=== PATIENT | male | born 1955 | race Caucasian/White ===

== ENCOUNTER → 2019-03-13 | Outpatient (CLI) | payer OTHER | END | disposition home or self-care (01) | LOC: CPPFTMAIN 11:04 | PROVIDERS: ATTEND Internal Medicine Critical Care Medicine | DX: J43.9 Emphysema, unspecified (principal) | CPT/HCPCS: 94060; 94726; 94729 ==

== ENCOUNTER 2019-06-01 20:37 | Inpatient (IN) | payer OTHER ==
[2019-06-01] MEDS ORDERED: IPRATROPIUM-ALBUTEROL 3 ML NEB INHALATION STA (21:39)
[2019-06-01] MEDS ORDERED: MORPHINE SULFATE 4 MG/ML SYRINGE IV PRN (21:39)
[2019-06-01] MEDS ORDERED: ASPIRIN 81 MG PO STA (21:39)
[2019-06-01] MEDS ORDERED: NITROGLYCERIN SL TABS 0.4 MG TAB SUBLINGUAL PRN (21:39)
[2019-06-01] MEDS ORDERED: methylPREDNISolone SOD SUCCI 125 MG/2 ML VIAL IV STA (21:39)
--- NOTE | 2019-06-01 21:39 | ED ---
Chest Pain HPI - General Chief Complaint: Chest Pain Stated Complaint: Cardiac Consult, COPD Time Seen by Provider: 06/01/19 20:50 Source: patient, EMS, RN notes reviewed, old records reviewed Mode of arrival: EMS - History of Present Illness Initial Comments: This is a 61-year-old male DF for evaluation patient Dese for evaluation of chest accepted in transfer for chest pain evaluation with cough congestion shortness of breath as well as persistent chest pain here in the ER patient was transfer for cardiology and pulmonology evaluation. Patient still presented for chest pain and shortness with mild cough here in the ER but no distress. No other complaints MD Complaint: chest pain, other (SOB) -: days(s) Onset: during rest, during exertion Pain Location: left chest Pain Radiation: LUE Severity: moderate Severity scale (1-10): 5 Quality: tightness, heaviness Consistency: constant Improves With: nothing Context: recent illness Other Symptoms: cough, palpitations Treatments Prior to Arrival: none - Related Data Allergies Allergy/AdvReac Type Severity Reaction Status Date / Time [place] nut Allergy Rash/Hives Verified 06/01/19 21:44 bupropion [From Zyban] Allergy Rash/Hives Verified 06/01/19 21:44 Penicillins Allergy Rash/Hives Verified 06/01/19 21:44 Review of Systems ROS Statement: Those systems with pertinent positive or pertinent negative responses have been documented in the HPI. ROS Other: All systems not noted in ROS Statement are negative. EKG Findings - EKG Comments: EKG Findings:: EKG shows sinus rhythm of 94, GA 132, QRS 90, QTc 435 Past Medical History Past Medical History: COPD, GERD/Reflux History of Any Multi-Drug Resistant Organisms: None Reported Past Surgical History: Cholecystectomy, Coronary Bypass/CABG Past Psychological History: No Psychological Hx Reported Smoking Status: Former smoker Past Alcohol Use History: None Reported Past Drug Use History: None Reported General Exam General appearance: alert, in no apparent distress Head exam: Present: atraumatic, normocephalic, normal inspection Eye exam: Present: normal appearance, PERRL, EOMI. Absent: scleral icterus, conjunctival injection, periorbital swelling ENT exam: Present: normal exam, mucous membranes moist Neck exam: Present: normal inspection. Absent: tenderness, meningismus, lymphadenopathy Respiratory exam: Present: normal lung sounds bilaterally. Absent: respiratory distress, wheezes, rales, rhonchi, stridor Cardiovascular Exam: Present: regular rate, normal rhythm, normal heart sounds. Absent: systolic murmur, diastolic murmur, rubs, gallop, clicks GI/Abdominal exam: Present: soft, normal bowel sounds. Absent: distended, tenderness, guarding, rebound, rigid Extremities exam: Present: normal inspection, full ROM, normal capillary refill. Absent: tenderness, pedal edema, joint swelling, calf tenderness Back exam: Present: normal inspection Neurological exam: Present: alert, oriented X3, CN II-XII intact Psychiatric exam: Present: normal affect, normal mood Skin exam: Present: warm, dry, intact, normal color. Absent: rash Course Vital Signs 06/01/19 06/01/19 06/01/19 20:57 21:03 22:01 Temperature 98 F Pulse Rate 93 86 Pulse Rate [ 94 Filler Shaker ] Respiratory 20 Rate Blood Pressure 134/83 O2 Sat by Pulse 98 Oximetry 06/01/19 22:14 Temperature Pulse Rate 92 Pulse Rate [ Filler Shaker ] Respiratory Rate Blood Pressure O2 Sat by Pulse Oximetry - Reevaluation(s) Reevaluation #1: 06/01/19 22:35 Medical record transferring paperwork are thoroughly reviewed Reevaluation #2: 06/01/19 22:35 No distress, patient feels well - Consultations Consultation #1: Spoke with [facility] who agree for admission Chest Pain MDM - MDM 63 mmale to the ER for evaluation patient has a for evaluation regards to shortness of breath or chest pain and COPD exacerbation, patient will be admitted for cardiology and pulmonology evaluation, continued monitoring Disposition Clinical Impression: Atypical chest pain, Chest pain, Acute exacerbation of COPD with asthma Disposition: ADMITTED IP TO THIS HOSP Condition: Fair Is patient prescribed a controlled substance at d/c from ED?: No
--- NOTE | 2019-06-01 22:07 | XR ---
EXAMINATION TYPE: XR chest 1V portable DATE OF EXAM: 06/01/2019 COMPARISON: 06/01/2019 HISTORY: Short of breath TECHNIQUE: FINDINGS: There are sternal wires. Heart size is normal. There is no heart failure. There is coarseni ng of the lung markings in the lower lobes. There is probably bullous emphysema. There are chest lead s. There is mild blunting of the costophrenic angles. There is increased right paratracheal density c onsistent with a mass also demonstrated by the CT scan of 07/08/2015 and not significantly changed in s ize. IMPRESSION: Pulmonary fibrotic changes and pleural diaphragmatic scarring stable compared to exam toritu spangler from [place]. COPD. Right upper lobe mass unchanged. No heart failure seen.
[2019-06-01 23:02] LABS: Basophils % (A) 0 %; Eosinophils % (A) 0 %; HCT 42.9 % (39.0-53.0); HGB 13.9 gm/dL (13.0-17.5); Lymphocytes # (A) 0.3 k/uL (1.0-4.8); Lymphocytes % (A) 2 %; MCH 27.1 pg (25.0-35.0); MCHC 32.4 g/dL (31.0-37.0); MCV 83.6 fL (80.0-100.0); Mean Platelet Volume 7.1; Monocytes # (A) 0.3 k/uL (0-1.0); Monocytes % (A) 2 %; Neutrophils # (A) 14.3 k/uL (1.3-7.7); Neutrophils % (A) 96 %; Platelet Count 284 k/uL (150-450); RBC 5.13 m/uL (4.30-5.90); RDW 13.7 % (11.5-15.5); WBC 14.9 k/uL (3.8-10.6)
[2019-06-01 23:12] LABS: INR 0.9 (<1.2); Partial Thromboplastin Time 23.2 sec (22.0-30.0); Prothrombin Time 9.6 sec (9.0-12.0)
[2019-06-01 23:20] LABS: ALT 21 U/L (4-49); AST 33 U/L (17-59); African American GFR (CKD) >90 (>60 ml/min/1.73 sqM); Albumin 4.3 g/dL (3.5-5.0); Alkaline Phosphatase 81 U/L (38-126); Anion Gap 9 mmol/L; Blood Urea Nitrogen 15 mg/dL (9-20); Calcium 9.4 mg/dL (8.4-10.2); Carbon Dioxide 28 mmol/L (22-30); Chloride 95 mmol/L (98-107); Glucose 104 mg/dL (74-99); Magnesium 1.9 mg/dL (1.6-2.3); Non-African American GFR(CKD) >90 (>60 ml/min/1.73 sqM); Potassium 4.6 mmol/L (3.5-5.1); Sodium 132 mmol/L (137-145); Total Bilirubin 0.5 mg/dL (0.2-1.3); Total Protein 7.2 g/dL (6.3-8.2)
[2019-06-01] MEDS ORDERED: HEPARIN SODIUM,PORCINE 5,000 UNIT/ML 1 ML VIAL IV PRN (23:48)
[2019-06-01] MEDS ORDERED: HEPARIN SODIUM,PORCINE 5,000 UNIT/ML 1 ML VIAL IV ONE (23:48)
[2019-06-02] MEDS: methylPREDNISolone SOD SUCCI 125 MG/2 ML VIAL IV SCH ×5 (00:21→23:15)
[2019-06-02] MEDS: HEPARIN SOD,PORK IN 0.45% NACL 25,000 UNIT in 0.45% NACL 1 250ML.BAG IV SCH ×2 (00:21→20:00)
[2019-06-02 04:59] LABS: Cholesterol 217 mg/dL (<200); HDL Cholesterol 76 mg/dL (40-60); LDL Cholesterol,Calculated 135 mg/dL (0-99); Triglycerides 30 mg/dL (<150)
[2019-06-02 07:07] LABS: Basophils % (A) 0 %; Eosinophils % (A) 0 %; HCT 43.5 % (39.0-53.0); Lymphocytes # (A) 0.3 k/uL (1.0-4.8); Lymphocytes % (A) 4 %; MCHC 32.1 g/dL (31.0-37.0); MCV 84.1 fL (80.0-100.0); Mean Platelet Volume 6.6; Monocytes # (A) 0.1 k/uL (0-1.0); Monocytes % (A) 2 %; Neutrophils # (A) 7.9 k/uL (1.3-7.7); Neutrophils % (A) 94 %; Platelet Count 283 k/uL (150-450); RBC 5.17 m/uL (4.30-5.90); RDW 13.4 % (11.5-15.5); WBC 8.4 k/uL (3.8-10.6)
[2019-06-02] MEDS: ALBUTEROL NEBULIZED 2.5 MG/3 ML INHALATION SCH ×2 (08:22→11:43)
[2019-06-02] MEDS: SYMBICORT 160-4.5 MCG INHALER INHALATION SCH ×2 (08:23→18:29)
[2019-06-02] MEDS: IPRATROPIUM 0.5 MG/2.5 ML NEBU INHALATION SCH ×4 (08:36→18:34)
[2019-06-02] MEDS: METOPROLOL SUCCINATE (ER) 25 MG TAB.ER.24H PO SCH (10:26)
[2019-06-02] MEDS: ASPIRIN 325 MG TAB PO SCH (10:26)
[2019-06-02] MEDS: ATORVASTATIN 40 MG TAB PO SCH (10:26)
[2019-06-02] MEDS ORDERED: SODIUM CHLORIDE 0.9% 1,000 ML in EMPTY BAG 1 BAG IV ONE (11:18)
[2019-06-02] MEDS ORDERED: ALPRAZolam 0.25 MG TAB PO PRN (11:18)
[2019-06-02] MEDS ORDERED: ALPRAZolam 0.5 MG TAB PO PRN (11:18)
[2019-06-02] MEDS ORDERED: PANTOPRAZOLE 40 MG TABLET PO STA (11:24)
[2019-06-02] MEDS: IPRATROPIUM-ALBUTEROL 3 ML NEB INHALATION PRN ×3 (11:41→18:29)
--- NOTE | 2019-06-02 11:44 | P.CRDCN ---
History of Present Illness History of present illness: HISTORY OF PRESENTING ILLNESS This is a pleasant 63-year-old male past medical history significant for coronary artery disease status post bypass grafting, myocardial infarction, COPD, hypertension, dyslipidemia and former nicotine dependence. He follows in the office with project portfolio analyst out of [place]. We have been asked to see in consultation for chest pain. He initially presented to [facility] and was transferred here for further cardiac evaluation. He states yesterday afternoon he started noticing an increase in shortness of breath associated with a heavy pressure sensation in his chest. His symptoms increased with activity that improved with rest. Initially he thought his symptoms were associated with his underlying COPD. However his chest pressure seemed to increase as the day went on prompting him to come to the hospital for further evaluation. Most recent cardiac catheterization was in 2013. At that time his ejection fraction was normal, no wall motion abnormalities, RCA is occluded at the midportion, left main is unremarkable, the circumflex is occluded at the midportion with a faint late collateral to the second and third OM, LAD has diffuse 10-20% lesions with no high-grade stenosis, large diagonal artery with a 30% mid lesion, bypass #1 is occluded, bypass #2 is occluded, bypass #3 is and SVG to the RCA occluded at the midportion. DIAGNOSTICS EKG reveals sinus mechanism, inferior Q wave and biphasic T waves laterally. Chest xray pulmonary fibrotic changes, underlying COPD, right upper lobe mass unchanged from previous study in no obvious heart failure. Laboratory reviewed, WBC 14.9 and repeat today 8.4, hemoglobin 14, platelets 283, sodium 132, potassium 4.6, creatinine 0.78, magnesium 1.9, troponin 0.093 and 0.104, NT proBNP 581, LDL 135 and HDL 76. Current cardiac medications include Plavix 75 mg daily, Lasix 40 mg daily, Imdur 30 mg daily and Toprol 25 mg daily. REVIEW OF SYSTEMS At the time of my exam: CONSTITUTIONAL: Denies fever or chills. CARDIOVASCULAR: Complains of exertional chest pain and shortness of breath. Denies orthopnea, PND or palpitations. RESPIRATORY: Complains of cough. GASTROINTESTINAL: Denies abdominal pain, diarrhea, constipation, nausea or vomiting. MUSCULOSKELETAL: Denies myalgias. NEUROLOGIC: Denies numbness, tingling or weakness. ENDOCRINE: Denies fatigue, weight change, polydipsia or polyurina. GENITOURINARY: Denies burning, hematuria or urgency with micturation. HEMATOLOGIC: Denies history of anemia or bleeding. PHYSICAL EXAMINATION Blood pressure 111/70 heart rate 77 afebrile and maintaining oxygen saturation on nasal cannula. CONSTITUTIONAL: No apparent distress. Barrel chest appearance. HEENT: Head is normocephalic. Pupils are equal, round. Sclerae anicteric. Mucous membranes of the mouth are moist. No JVD. No carotid bruit. CHEST EXAMINATION: Lungs are clear to auscultation. No chest wall tenderness is noted on palpation or with deep breathing. Diminished bilaterally. HEART EXAMINATION: Regular rate and rhythm. S1, S2 heard. No murmurs, gallops or rub. ABDOMEN: Soft, nontender. Positive bowel sounds. EXTREMITIES: 2+ peripheral pulses, no lower extremity edema and no calf tenderness. NEUROLOGIC EXAMINATION: Patient is awake, alert and oriented x3. ASSESSMENT Unstable angina Non-ST elevated myocardial infarction History of coronary artery disease status post bypass grafting Hypertension Dyslipidemia, patient stopped taking his statin approximately 4 months ago secondary to stomach irritation COPD Former nicotine dependence PLAN Obtain 2-D echocardiogram and Doppler study to assess cardiac structure and function. Report of his previous cardiac catheterization has been requested and reviewed. Recommend proceeding with coronary angiography to assess for progression of underlying CAD. I have discussed the risks, benefits and alternative therapies for the above-mentioned procedure and for both sedation/analgesia as well as necessary blood product administration, if indicated, as they pertain to this patient. The patient has indicated understanding and acceptance of the risks and procedures discussed. Questions have been answered appropriately and he is agreeable to move forward with the above-stated procedure. Initiate atorvastatin 40 mg daily while in the hospital and will give prescription for Crestor on discharge. Further recommendations to follow. Thank you kindly for this consultation. Nurse Practitioner note has been reviewed, I agree with a documented findings and plan of care. Patient was seen and examined. Past Medical History Past Medical History: Coronary Artery Disease (CAD), COPD, GERD/Reflux, Hyperlipidemia, Hypertension, Myocardial Infarction (CO) Additional Past Medical History / Comment(s): BLIND RIGHT EYE Last Myocardial Infarction Date:: 2012 History of Any Multi-Drug Resistant Organisms: None Reported Past Surgical History: Appendectomy, Coronary Bypass/CABG, Heart Catheterization Additional Past Surgical History / Comment(s): RIGHT EYE Past Anesthesia/Blood Transfusion Reactions: No Reported Reaction Past Psychological History: No Psychological Hx Reported Smoking Status: Former smoker Past Alcohol Use History: None Reported Past Drug Use History: None Reported - Past Family History Mother Family Medical History: Diabetes Mellitus Father Family Medical History: COPD Medications and Allergies Home Medications Medication Instructions Recorded Confirmed Type Albuterol Nebulized [Ventolin 2.5 mg INHALATION RT-QID PRN 06/01/19 06/01/19 History Nebulized] Albuterol Sulfate [Ventolin HFA] 2 puff INHALATION RT-Q4H PRN 06/01/19 06/01/19 History Calcium Carbonate [Tums] 1,000 mg PO TID PRN 06/01/19 06/01/19 History Clopidogrel Bisulfate [Plavix] 75 mg PO HS@219906/01/19 06/01/19 History Fluticasone/Salmeterol [Advair Hfa 2 puff INHALATION RT-BID@0800,219906/01/19 06/01/19 History 230-21 Mcg Inhaler] Furosemide [Lasix] 40 mg PO DAILY@1500 06/01/19 06/01/19 History Isosorbide Mononitrate ER [Imdur] 30 mg PO HS@219906/01/19 06/01/19 History Metoprolol Succinate [Toprol XL] 25 mg PO DAILY@0800 06/01/19 06/01/19 History Nitroglycerin Sl Tabs [Nitrostat] 0.4 mg SUBLINGUAL Q5M PRN 06/01/19 06/01/19 History Pantoprazole Sodium [Protonix] 40 mg PO BID@0700,1500 06/01/19 06/01/19 History Potassium Chloride ER [K-Dur 20] 20 meq PO DAILY@1500 06/01/19 06/01/19 History Simethicone [Gas-X] 125 - 250 mg PO QID PRN 06/01/19 06/01/19 History Tiotropium [place] [Spiriva] 1 cap INHALATION RT-HS@212906/01/19 06/01/19 History predniSONE 5 mg PO DAILY@0730 06/01/19 06/01/19 History Allergies Allergy/AdvReac Type Severity Reaction Status Date / Time [place] nut Allergy Anaphylaxis Verified 06/01/19 23:05 bupropion [From Zyban] Allergy Rash/Hives Verified 06/01/19 23:05 Penicillins Allergy Rash/Hives Verified 06/01/19 23:05 Physical Exam Vitals: Vital Signs Temp Pulse Pulse Pulse Resp BP BP 06/02/19 07:15 97.4 F L 78 18 06/02/19 03:59 83 18 06/02/19 02:38 97.7 F 82 18 119/81 06/01/19 23:48 105 H 18 06/01/19 23:35 97.8 F 105 H 18 122/75 06/01/19 22:14 92 06/01/19 22:01 86 06/01/19 21:03 94 06/01/19 20:57 98 F 93 20 134/83 BP Pulse Ox 06/02/19 07:15 120/84 99 06/02/19 03:59 06/02/19 02:38 98 06/01/19 23:48 06/01/19 23:35 93 L 06/01/19 22:14 06/01/19 22:01 06/01/19 21:03 06/01/19 20:57 98 Intake and Output 06/01/19 06/02/19 06/02/19 22:59 06:59 14:59 Output Total 200 Balance -200 Output: Urine 200 Other: Weight 66.224 kg 67.4 kg Results 06/02/19 06:39 06/01/19 20:50 Cardiac Enzymes 06/01/19 06/01/19 06/02/19 Range/Units 20:50 20:50 04:00 AST 33 (17-59) U/L Troponin I 0.093 H* 0.104 H* (0.000-0.034) ng/mL Coagulation 06/01/19 06/02/19 Range/Units 20:50 06:39 PT 9.6 (9.0-12.0) sec APTT 23.2 51.4 H (22.0-30.0) sec Lipids 06/02/19 Range/Units 04:00 Triglycerides 30 (<150) mg/dL Cholesterol 217 H (<200) mg/dL HDL Cholesterol 76 H (40-60) mg/dL CBC 06/01/19 06/02/19 Range/Units 20:50 06:39 WBC 14.9 H 8.4 (3.8-10.6) k/uL RBC 5.13 5.17 (4.30-5.90) m/uL Hgb 13.9 14.0 (13.0-17.5) gm/dL Hct 42.9 43.5 (39.0-53.0) % Plt Count 284 283 (150-450) k/uL Comprehensive Metabolic Panel 06/01/19 Range/Units 20:50 Sodium 132 L (137-145) mmol/L Potassium 4.6 (3.5-5.1) mmol/L Chloride 95 L (98-107) mmol/L Carbon Dioxide 28 (22-30) mmol/L BUN 15 (9-20) mg/dL Creatinine 0.78 (0.66-1.25) mg/dL Glucose 104 H (74-99) mg/dL Calcium 9.4 (8.4-10.2) mg/dL AST 33 (17-59) U/L ALT 21 (4-49) U/L Alkaline Phosphatase 81 (38-126) U/L Total Protein 7.2 (6.3-8.2) g/dL Albumin 4.3 (3.5-5.0) g/dL Current Medications Generic Name Dose Route Start Last Admin Trade Name Freq PRN Reason Stop Dose Admin Albuterol Sulfate 2.5 mg 06/02/19 08:00 Ventolin Nebulized INHALATION RT-QID JANICE Albuterol/Ipratropium 3 ml 06/01/19 21:39 Duoneb 0.5 Mg-3 Mg/3 Ml Soln INHALATION RT-Q4H PRN Shortness Of Breath Or Wheezing Aspirin 325 mg 06/02/19 09:00 Aspirin PO DAILY [facility] Budesonide/Formoterol Fumarate 2 puff 06/02/19 08:00 Symbicort 160-4.5 Mcg Inhaler INHALATION RT-BID@0800,2200 [facility] Calcium Carbonate/Glycine 1,000 mg 06/02/19 07:33 Tums PO TID PRN Heartburn Clopidogrel Bisulfate 75 mg 06/02/19 22:00 Plavix PO HS@2200 JANICE Furosemide 40 mg 06/02/19 15:00 Lasix PO DAILY@1500 JANICE Heparin Sodium (Porcine) 0 unit 06/01/19 23:48 Heparin IV PER PROTOCOL PRN Low PTT Protocol Heparin Sodium/Sodium Chloride 250 mls @ 8.088 mls/hr 02/24/20 23:45 06/02/19 00:21 25,000 unit/ Sodium Chloride IV 12 units/kg/hr .Q24H [facility] 8.088 mls/hr Administration Protocol 12 UNITS/KG/HR Ipratropium [place] 0.5 mg 06/02/19 08:00 Atrovent Nebulized INHALATION RT-QID [facility] Isosorbide Mononitrate 30 mg 06/02/19 22:00 Imdur PO HS@2200 [facility] Methylprednisolone Sodium Succinate 60 mg 06/02/19 00:00 06/02/19 05:57 Solu-Medrol IV 60 mg Q6HR [facility] Administration Metoprolol Succinate 25 mg 06/02/19 08:00 Toprol Xl PO DAILY@0800 [facility] Morphine Sulfate 4 mg 06/01/19 21:39 Morphine Sulfate (Inj) IV Q4HR PRN Chest Pain Nitroglycerin 0.4 mg 06/01/19 21:39 Nitrostat SUBLINGUAL Q5M PRN Chest Pain Pantoprazole Sodium 40 mg 06/02/19 15:00 Protonix PO BID@0700,1500 [facility] Potassium Chloride 20 meq 06/02/19 15:00 K-Dur 20 PO DAILY@1500 [facility] Intake and Output 06/01/19 06/02/19 06/02/19 22:59 06:59 14:59 Output Total 200 Balance -200 Output: Urine 200 Other: Weight 66.224 kg 67.4 kg 06/02/19 06:39 06/01/19 20:50
--- NOTE | 2019-06-02 12:00 | P.CNPUL ---
History of Present Illness Consult date: 06/02/19 Requesting physician: Roberto London Reason for consult: dyspnea, chest pain Chief complaint: Chest tightness, shortness of breath History of present illness: This is a very pleasant 63-year-old gentleman who follows with Hossein Eckert as his primary care provider. He has a history of coronary artery disease with previous coronary artery bypass grafting in 2001 at [facility], and subsequent cardiac catheterization in 2013 at [facility] without any further intervention. He states there was some collateral circulation at that time. He also has a significant history of chronic tobacco dependence and severe chronic obstructive pulmonary disease with a FEV1 value 14% of predicted. He also has a right upper lobe mass that has been followed and been stable in the outpatient setting. He sees Dr. Alicia in our office. He is currently on Advair, Spiriva, albuterol. He was recently started on prednisone 5 mg daily as maintenance. He is not oxygen dependent at this point. He has significant gastroesophageal reflux disease and his Protonix was increased to 40 mg twice a day. He presented here to the emergency room with complaints of chest tightness and shortness of breath. He is seen today in consultation in the observation unit. He is currently awake and alert in no acute distress. He is dyspneic with minimal exertion. He is currently maintaining O2 saturations in the 90s on room air. He is afebrile. Hemodynamically stable. White count 8.4. Hemoglobin 14.0. Sodium 132. Potassium 4.6. Creatinine 0.78. Troponin 0.093, 0.104. EKG reveals sinus rhythm with inferior wall infarct of unclear duration. Echocardiogram is pending. He has been initiated on a heparin drip. Started on Symbicort, DuoNeb inhalations, IV Solu-Medrol. Review of Systems REVIEW OF SYSTEMS: CONSTITUTIONAL: Denies any recent significant weight loss or weight gain. EYES: Denies change in vision. EARS, NOSE, MOUTH, THROAT: Denies headaches, denies sore throat. CARDIOVASCULAR: Positive for chest pain, no palpitations or syncopal episodes. RESPIRATORY: Positive for shortness of breath, cough, congestion no hemoptysis. GASTROINTESTINAL: Denies change in appetite, denies abdominal pain GENITOURINARY: Denies hematuria, denies infections. MUSKULOSKELETAL: Denies pain, denies swelling. INTEGUMENTARY: Denies rash, denies eczema. NEUROLOGICAL: Denies recent memory loss, no recent seizure activity. PSYCHIATRIC: Denies anxiety, denies depression. HEMATOLOGIC/LYMPHATIC: Denies anemia, denies enlarged lymph nodes. Past Medical History Past Medical History: Coronary Artery Disease (CAD), COPD, GERD/Reflux, H yperlipidemia, Hypertension, Myocardial Infarction (VT) Additional Past Medical History / Comment(s): BLIND RIGHT EYE Last Myocardial Infarction Date:: 2012 History of Any Multi-Drug Resistant Organisms: None Reported Past Surgical History: Appendectomy, Coronary Bypass/CABG, Heart Catheterization Additional Past Surgical History / Comment(s): RIGHT EYE Past Anesthesia/Blood Transfusion Reactions: No Reported Reaction Past Psychological History: No Psychological Hx Reported Smoking Status: Former smoker Past Alcohol Use History: None Reported Past Drug Use History: None Reported - Past Family History Mother Family Medical History: Diabetes Mellitus Father Family Medical History: COPD Medications and Allergies Home Medications Medication Instructions Recorded Confirmed Type Albuterol Nebulized [Ventolin 2.5 mg INHALATION RT-QID PRN 06/01/19 06/01/19 History Nebulized] Albuterol Sulfate [Ventolin HFA] 2 puff INHALATION RT-Q4H PRN 06/01/19 06/01/19 History Calcium Carbonate [Tums] 1,000 mg PO TID PRN 06/01/19 06/01/19 History Clopidogrel Bisulfate [Plavix] 75 mg PO HS@219906/01/19 06/01/19 History Fluticasone/Salmeterol [Advair Hfa 2 puff INHALATION RT-BID@0800,0 06/01/19 06/01/19 History 230-21 Mcg Inhaler] Furosemide [Lasix] 40 mg PO DAILY@1500 06/01/19 06/01/19 History Isosorbide Mononitrate ER [Imdur] 30 mg PO HS@219906/01/19 06/01/19 History Metoprolol Succinate [Toprol XL] 25 mg PO DAILY@0800 06/01/19 06/01/19 History Nitroglycerin Sl Tabs [Nitrostat] 0.4 mg SUBLINGUAL Q5M PRN 06/01/19 06/01/19 History Pantoprazole Sodium [Protonix] 40 mg PO BID@0700,1500 06/01/19 06/01/19 History Potassium Chloride ER [K-Dur 20] 20 meq PO DAILY@1500 06/01/19 06/01/19 History Simethicone [Gas-X] 125 - 250 mg PO QID PRN 06/01/19 06/01/19 History Tiotropium [place] [Spiriva] 1 cap INHALATION RT-HS@2130 06/01/19 06/01/19 History predniSONE 5 mg PO DAILY@0730 06/01/19 06/01/19 History Allergies Allergy/AdvReac Type Severity Reaction Status Date / Time [place] nut Allergy Anaphylaxis Verified 06/01/19 23:05 bupropion [From Zyban] Allergy Rash/Hives Verified 06/01/19 23:05 Penicillins Allergy Rash/Hives Verified 06/01/19 23:05 Physical Exam Vitals: Vital Signs Temp Pulse Pulse Pulse Resp BP BP 06/02/19 11:41 88 06/02/19 11:23 97.9 F 77 18 06/02/19 08:36 84 06/02/19 08:28 80 06/02/19 07:15 97.4 F L 78 18 06/02/19 03:59 83 18 06/02/19 02:38 97.7 F 82 18 119/81 06/01/19 23:48 105 H 18 06/01/19 23:35 97.8 F 105 H 18 122/75 06/01/19 22:14 92 06/01/19 22:01 86 06/01/19 21:03 94 06/01/19 20:57 98 F 93 20 134/83 BP Pulse Ox 06/02/19 11:41 06/02/19 11:23 111/70 97 06/02/19 08:36 06/02/19 08:28 06/02/19 07:15 120/84 99 06/02/19 03:59 06/02/19 02:38 98 06/01/19 23:48 06/01/19 23:35 93 L 06/01/19 22:14 06/01/19 22:01 06/01/19 21:03 06/01/19 20:57 98 Intake and Output 06/01/19 06/02/19 06/02/19 22:59 06:59 14:59 Output Total 200 400 Balance -200 -400 Output: Urine 200 400 Other: Voiding Method Toilet Weight 66.224 kg 67.4 kg GENERAL EXAM: Alert, very pleasant 63-year-old gentleman, on 2 L nasal cannula, comfortable in no apparent distress. HEAD: Normocephalic. EYES: Normal reaction of pupils, equal size. NOSE: Clear with pink turbinates. THROAT: No erythema or exudates. NECK: No masses, no JVD. CHEST: No chest wall deformity. LUNGS: Equal air entry with no crackles, wheeze, rhonchi or dullness. Diminished. CVS: S1 and S2 normal with no audible murmur, regular rhythm. ABDOMEN: No hepatosplenomegaly, normal bowel sounds, no guarding or rigidity. SPINE: No scoliosis or deformity SKIN: No rashes CENTRAL NERVOUS SYSTEM: No focal deficits, tone is normal in all 4 extremities. EXTREMITIES: There is no peripheral edema. No clubbing, no cyanosis. Peripheral pulses are intact. Results - Laboratory Findings CBC and BMP: 06/02/19 06:39 06/01/19 20:50 PT/INR, D-dimer PT 9.6 sec (9.0-12.0) 06/01/19 20:50 INR 0.9 (<1.2) 06/01/19 20:50 Abnormal lab findings: Abnormal Labs 06/01/19 06/01/19 06/01/19 20:50 20:50 20:50 WBC 14.9 H Neutrophils # 14.3 H Lymphocytes # 0.3 L APTT Sodium 132 L Chloride 95 L Glucose 104 H Troponin I 0.093 H* Cholesterol LDL Cholesterol, Calc HDL Cholesterol 06/02/19 06/02/19 06/02/19 04:00 04:00 06:39 WBC Neutrophils # 7.9 H Lymphocytes # 0.3 L APTT Sodium Chloride Glucose Troponin I 0.104 H* Cholesterol 217 H LDL Cholesterol, Calc 135 H HDL Cholesterol 76 H 06/02/19 06:39 WBC Neutrophils # Lymphocytes # APTT 51.4 H Sodium Chloride Glucose Troponin I Cholesterol LDL Cholesterol, Calc HDL Cholesterol - Diagnostic Findings Chest x-ray: image reviewed Assessment and Plan Assessment: 1 Chest tightness with shortness of breath possible angina equivalent 2 Troponin leak 3 Coronary artery disease with previous coronary artery bypass grafting in 2001 at [facility], subsequent cardiac catheterization 2013 at [place] with no further intervention at that time 4 Severe chronic obstructive pulmonary disease with an FEV1 value of 14% of predicted, recently started on prednisone. Not oxygen dependent. 5 Acute hypoxemic respiratory failure secondary to above 6 History of chronic tobacco dependence 7 History of a right upper lobe nodule being followed in the outpatient setting. This has been stable since at least 2013. 8 Hypertension 9 Hyperlipidemia 10 Gastroesophageal reflux disease with recent increasing Protonix to twice a day Plan: The patient was seen and evaluated by Dr. Patricio. Chest x-ray and labs reviewed. We'll continue with DuoNeb inhalations, Symbicort, IV Solu-Medrol. No clear indication for antibiotics at this point. He has been seen and evaluated by cardiology who is planning possible cardiac catheterization. Echocardiogram is pending. We will continue to follow and make further recommendations based on his clinical status. I, the cosigning physician, performed a history & physical examination of the patient. Lungs sounds are clear, diminished. Maintaining good O2 saturations in the 90s on 2 L/m per nasal cannula. I discussed the assessment and plan of care with my nurse practitioner, Racheal Roman. I attest to the above consultation as dictated by her.
[2019-06-02] MEDS ORDERED: TAMSULOSIN 0.4 MG CAP.ER.24H PO STA (13:30)
--- NOTE | 2019-06-02 13:32 | P.HPIM ---
History of Present Illness This is a pleasant 63 years old male with past medical history of coronary artery disease, status post CABG, COPD, GERD, hyperlipidemia, hypertension. Presents with chest pressure and dyspnea of one-day duration rather than chest pain, no associated nausea vomiting but she has some as to what symptoms. No coughing, He has loose stool after taking some laxatives. Also was complaining of from urinary retention with her to urinate thinking he has some personal problem Vitals are stable. Left showing leukocytosis of 14.9, back to normal at 8.4,, also is on Solu-Medrol rest of CBC is unremarkable, sodium 132, potassium is 4.6, creatinine 0.7, liver enzymes not elevated. Troponin is elevated at 0.09 and 0.10 Emergency room patient was started on aspirin and heparin drip He's ex-smoker quit about 4-5 years ago, no alcohol or illicit tracts Review of Systems CONSTITUTIONAL: No fever, no malaise, no fatigue. HEENT: No recent visual problems or hearing problems. Denied any sore throat. CARDIOVASCULAR: No orthopnea, PND, no palpitations, no syncope. PULMONARY: No shortness of breath, no cough, no hemoptysis. GASTROINTESTINAL: No diarrhea, no nausea, no vomiting, no abdominal pain. Normoactive bowel sounds. NEUROLOGICAL: No headaches, no weakness, no numbness. HEMATOLOGICAL: Denies any bleeding or petechiae. GENITOURINARY: Denies any burning micturition, frequency, or urgency. MUSCULOSKELETAL/RHEUMATOLOGICAL: Denies any joint pain, swelling, or any muscle pain. ENDOCRINE: Denies any polyuria or polydipsia. Past Medical History Past Medical History: Coronary Artery Disease (CAD), COPD, GERD/Reflux, Hyperlipidemia, Hypertension, Myocardial Infarction (MS) Additional Past Medical History / Comment(s): BLIND RIGHT EYE Last Myocardial Infarction Date:: 2012 History of Any Multi-Drug Resistant Organisms: None Reported Past Surgical History: Appendectomy, Coronary Bypass/CABG, Heart Catheterization Additional Past Surgical History / Comment(s): RIGHT EYE Past Anesthesia/Blood Transfusion Reactions: No Reported Reaction Past Psychological History: No Psychological Hx Reported Smoking Status: Former smoker Past Alcohol Use History: None Reported Past Drug Use History: None Reported - Past Family History Mother Family Medical History: Diabetes Mellitus Father Family Medical History: COPD Medications and Allergies Home Medications Medication Instructions Recorded Confirmed Type Albuterol Nebulized [Ventolin 2.5 mg INHALATION RT-QID PRN 06/01/19 06/01/19 History Nebulized] Albuterol Sulfate [Ventolin HFA] 2 puff INHALATION RT-Q4H PRN 06/01/19 06/01/19 History Calcium Carbonate [Tums] 1,000 mg PO TID PRN 06/01/19 06/01/19 History Clopidogrel Bisulfate [Plavix] 75 mg PO HS@219906/01/19 06/01/19 History Fluticasone/Salmeterol [Advair Hfa 2 puff INHALATION RT-BID@0800,219906/01/19 06/01/19 History 230-21 Mcg Inhaler] Furosemide [Lasix] 40 mg PO DAILY@1500 06/01/19 06/01/19 History Isosorbide Mononitrate ER [Imdur] 30 mg PO HS@219906/01/19 06/01/19 History Metoprolol Succinate [Toprol XL] 25 mg PO DAILY@0800 06/01/19 06/01/19 History Nitroglycerin Sl Tabs [Nitrostat] 0.4 mg SUBLINGUAL Q5M PRN 06/01/19 06/01/19 History Pantoprazole Sodium [Protonix] 40 mg PO BID@0700,1500 06/01/19 06/01/19 History Potassium Chloride ER [K-Dur 20] 20 meq PO DAILY@1500 06/01/19 06/01/19 History Simethicone [Gas-X] 125 - 250 mg PO QID PRN 06/01/19 06/01/19 History Tiotropium [place] [Spiriva] 1 cap INHALATION RT-HS@212906/01/19 06/01/19 History predniSONE 5 mg PO DAILY@0730 06/01/19 06/01/19 History Allergies Allergy/AdvReac Type Severity Reaction Status Date / Time [place] nut Allergy Anaphylaxis Verified 06/01/19 23:05 bupropion [From Zyban] Allergy Rash/Hives Verified 06/01/19 23:05 Penicillins Allergy Rash/Hives Verified 06/01/19 23:05 Physical Exam Vitals: Vital Signs Temp Pulse Pulse Pulse Resp BP BP 06/02/19 11:49 84 02/25/20 11:41 88 06/02/19 11:23 97.9 F 77 18 06/02/19 08:36 84 06/02/19 08:28 80 06/02/19 07:15 97.4 F L 78 18 06/02/19 03:59 83 18 06/02/19 02:38 97.7 F 82 18 119/81 06/01/19 23:48 105 H 18 06/01/19 23:35 97.8 F 105 H 18 122/75 06/01/19 22:14 92 06/01/19 22:01 86 06/01/19 21:03 94 06/01/19 20:57 98 F 93 20 134/83 BP Pulse Ox 06/02/19 11:49 06/02/19 11:41 06/02/19 11:23 111/70 97 06/02/19 08:36 06/02/19 08:28 06/02/19 07:15 120/84 99 06/02/19 03:59 06/02/19 02:38 98 06/01/19 23:48 06/01/19 23:35 93 L 06/01/19 22:14 06/01/19 22:01 06/01/19 21:03 06/01/19 20:57 98 Intake and Output 06/01/19 06/02/19 06/02/19 22:59 06:59 14:59 Intake Total 240 Output Total 200 400 Balance -200 -160 Intake: Oral 240 Output: Urine 200 400 Other: Voiding Method Toilet Weight 66.224 kg 67.4 kg GENERAL: The patient is alert and oriented x3, not in any acute distress. Well developed, well nourished. HEENT: Pupils are round and equally reacting to light. EOMI. No scleral icterus. No conjunctival pallor. Normocephalic, atraumatic. No pharyngeal erythema. No thyromegaly. CARDIOVASCULAR: S1 and S2 present. No murmurs, rubs, or gallops. PULMONARY: Chest is clear to auscultation, no wheezing or crackles. ABDOMEN: Soft, nontender, nondistended, normoactive bowel sounds. No palpable or ganomegaly. MUSCULOSKELETAL: No joint swelling or deformity. EXTREMITIES: No cyanosis, clubbing, or pedal edema. NEUROLOGICAL: Gross neurological examination did not reveal any focal deficits. SKIN: No rashes. No petechiae Results CBC & Chem 7: 06/02/19 06:39 06/01/19 20:50 Labs: Abnormal Lab Results - Last 24 Hours (Table) 06/01/19 06/01/19 06/01/19 Range/Units 20:50 20:50 20:50 WBC 14.9 H (3.8-10.6) k/uL Neutrophils # 14.3 H (1.3-7.7) k/uL Lymphocytes # 0.3 L (1.0-4.8) k/uL APTT (22.0-30.0) sec Sodium 132 L (137-145) mmol/L Chloride 95 L (98-107) mmol/L Glucose 104 H (74-99) mg/dL Troponin I 0.093 H* (0.000-0.034) ng/mL Cholesterol (<200) mg/dL LDL Cholesterol, Calc (0-99) mg/dL HDL Cholesterol (40-60) mg/dL 06/02/19 06/02/19 06/02/19 Range/Units 04:00 04:00 06:39 WBC (3.8-10.6) k/uL Neutrophils # 7.9 H (1.3-7.7) k/uL Lymphocytes # 0.3 L (1.0-4.8) k/uL APTT (22.0-30.0) sec Sodium (137-145) mmol/L Chloride (98-107) mmol/L Glucose (74-99) mg/dL Troponin I 0.104 H* (0.000-0.034) ng/mL Cholesterol 217 H (<200) mg/dL LDL Cholesterol, Calc 135 H (0-99) mg/dL HDL Cholesterol 76 H (40-60) mg/dL 06/02/19 Range/Units 06:39 WBC (3.8-10.6) k/uL Neutrophils # (1.3-7.7) k/uL Lymphocytes # (1.0-4.8) k/uL APTT 51.4 H (22.0-30.0) sec Sodium (137-145) mmol/L Chloride (98-107) mmol/L Glucose (74-99) mg/dL Troponin I (0.000-0.034) ng/mL Cholesterol (<200) mg/dL LDL Cholesterol, Calc (0-99) mg/dL HDL Cholesterol (40-60) mg/dL Thrombosis Risk Factor Assmnt - Choose All That Apply Any of the Below Risk Factors Present?: Yes Each Factor Represents 1 point: Abnormal pulmonary function (COPD), Acute MS, Swollen legs (current) Other Risk Factors: Yes Each Risk Factor Represents 2 Points: Age 61-74 years Other congenital or acquired thrombophilia - If yes, enter type in comment: No Thrombosis Risk Factor Assessment Total Risk Factor Score: 5 Thrombosis Risk Factor Assessment Level: High Risk Assessment and Plan Assessment: Chest pain, suspicious for nonischemic COPD , with acute exacerbation hyperlipidemia hypertension history of coronary artery disease, status post CABG Gastroesophageal reflux disease Plan: This is a pleasant 63 years old male who presents because of chest pain. going for coronary angiogram by cardiology team. Continue with steroids, particularly turgor and oxygen as needed. Recommendation by cardiology and pulmonary services. Continue with Flomax, check bladder scan Labs and medication were reviewed.. Continue same treatment. Continue with symptomatic treatment. Resume home medication. Monitor lytes and vitals. DVT and GI prophylaxis. Further recommendations of the clinical course of the patient DVT prophylaxis: heparin GI Prophylaxis: Ppi Prognosis is guarded
[2019-06-02] MEDS: FUROSEMIDE 40 MG TAB PO SCH (13:44)
[2019-06-02] MEDS: POTASSIUM CHLORIDE ER 20 MEQ TAB.ER PO SCH (13:44)
--- NOTE | 2019-06-02 16:00 | ECHOF ---
Referral Reason:chest pain, nstemi MEASUREMENTS -------- HEIGHT: 172.7 cm WEIGHT: 67.6 kg BP: IVSd: 1.0 cm (0.6 - 1.1) LVIDd: 4.3 cm (3.9 - 5.3) LVPWd: 0.9 cm (0.6 - 1.1) IVSs: 1.1 cm LVIDs: 3.4 cm LVPWs: 1.5 cm LA Diam: 2.9 cm (2.7 - 3.8) RVIDd: 3.4 cm (< 3.3) LAESV Index (A-L): 16.60 ml/m Ao Diam: 3.1 cm (2.0 - 3.7) AV Cusp: 1.8 cm (1.5 - 2.6) EPSS: 0.5 cm MV E Ethan: 0.64 m/s MV DecT: 144 ms MV A Ethan: 0.69 m/s MV E/A Ratio: 0.93 RAP: 5.00 mmHg RVSP: 29.62 mmHg MV EF SLOPE: 68.26 mm/s (70 - 150) MV EXCURSION: 16.66 mm (> 18.000) FINDINGS -------- Sinus rhythm. This was a technically good study. The left ventricular size is normal. Left ventricular wall thickness is normal. Overall left vent ricular systolic function is mildly impaired with, an EF between 45 - 50 %. Basal inferior LV wall motion is hypokinetic. Anterseptal Hypokinesis Basal septal hypokinesis The right ventricle is normal in size. The left atrial size is normal. The right atrial size is normal. There is mild aortic valve sclerosis. There is no evidence of aortic regurgitation. Mild mitral annular calcification present. Mild mitral regurgitation is present. Mild tricuspid regurgitation present. Right ventricular systolic pressure is normal at < 35 mmHg. There is no evidence of pulmonary hypertension. There is no pulmonic regurgitation present. The aortic root size is normal. There is no pericardial effusion. CONCLUSIONS -------- 1. Sinus rhythm. 2. This was a technically good study. 3. The left ventricular size is normal. 4. Left ventricular wall thickness is normal. 5. Overall left ventricular systolic function is mildly impaired with, an EF between 45 - 50 %. 6. Basal inferior LV wall motion is hypokinetic. 7. Anterseptal Hypokinesis 8. Basal septal hypokinesis 9. The right ventricle is normal in size. 10. The left atrial size is normal. 11. The right atrial size is normal. 12. There is mild aortic valve sclerosis. 13. Mild mitral annular calcification present. 14. Mild mitral regurgitation is present. 15. Mild tricuspid regurgitation present. 16. Right ventricular systolic pressure is normal at < 35 mmHg. 17. There is no evidence of pulmonary hypertension. 18. There is no pulmonic regurgitation present. 19. The aortic root size is normal. 20. There is no pericardial effusion. CONSOLE ATTENDANT: Ruba Chase RDCS
[2019-06-02] MEDS: PANTOPRAZOLE 40 MG TABLET PO SCH (16:48)
[2019-06-02] MEDS: TAMSULOSIN 0.4 MG CAP.ER.24H PO SCH (19:24)
[2019-06-02] MEDS: CLOPIDOGREL 75 MG TAB PO SCH (19:24)
[2019-06-02] MEDS: CALCIUM CARBONATE 500 MG CHEWABLE PO PRN (20:00)
[2019-06-02] MEDS ORDERED: ISOSORBIDE MONONITRATE ER 30 MG TAB.ER.24H PO SCH (22:00)
[2019-06-03] MEDS: methylPREDNISolone SOD SUCCI 125 MG/2 ML VIAL IV SCH ×4 (06:12→23:00)
[2019-06-03 06:32] LABS: Glucose,Whole Blood 130 mg/dL (75-99)
[2019-06-03] MEDS: INSULIN ASPART (NovoLOG) 100 UNIT/ML VIAL SQ SCH ×4 (07:24→20:11)
[2019-06-03] MEDS: ASPIRIN 325 MG TAB PO SCH (07:29)
[2019-06-03] MEDS: PANTOPRAZOLE 40 MG TABLET PO SCH ×2 (07:29→14:48)
[2019-06-03] MEDS: ATORVASTATIN 40 MG TAB PO SCH (07:29)
--- NOTE | 2019-06-03 07:50 | P.PN ---
Subjective This is a pleasant 63 years old male with past medical history of coronary artery disease, status post CABG, COPD, GERD, hyperlipidemia, hypertension. Presents with chest pressure and dyspnea of one-day duration rather than chest pain, no associated nausea vomiting but she has some as to what symptoms. No coughing, He has loose stool after taking some laxatives. Also was complaining of from urinary retention with her to urinate thinking he has some personal problem Vitals are stable. Left showing leukocytosis of 14.9, back to normal at 8.4,, also is on Solu-Medrol rest of CBC is unremarkable, sodium 132, potassium is 4.6, creatinine 0.7, liver enzymes not elevated. Troponin is elevated at 0.09 and 0.10 Emergency room patient was started on aspirin and heparin drip He's ex-smoker quit about 4-5 years ago, no alcohol or illicit tracts 06/03/2019 Patient breathing is stable and he breathes easily and he does not feel his dyspneic although on examination there is some limitation of air entry. No wheezing. He still on 2 L oxygen were negative. Nasal cannula was saturating 92-97%. Blood pressure 98/59. He has some chest pain and he thinks is related to his acid reflux which helped a little bit by Protonix. No more loose bowel movement since yesterday. His voiding easier this morning after second pedal of Flomax last night. And no other symptoms. He is hemodynamically stable. No labs from today. Patient is planned to go for cardiac cath today ROS CONSTITUTIONAL: No fever, no malaise, no fatigue. HEENT: No recent visual problems or hearing problems. Denied any sore throat. CARDIOVASCULAR: No orthopnea, PND, no palpitations, no syncope. PULMONARY: No shortness of breath, no cough, no hemoptysis. GASTROINTESTINAL: No diarrhea, no nausea, no vomiting, no abdominal pain. Norm oactive bowel sounds. NEUROLOGICAL: No headaches, no weakness, no numbness. HEMATOLOGICAL: Denies any bleeding or petechiae. GENITOURINARY: Denies any burning micturition, frequency, or urgency. MUSCULOSKELETAL/RHEUMATOLOGICAL: Denies any joint pain, swelling, or any muscle pain. ENDOCRINE: Denies any polyuria or polydipsia. Objective - Vital Signs Vital signs: Vital Signs Temp 97.6 F 06/03/19 07:27 Pulse 76 06/03/19 07:27 Resp 18 06/03/19 07:27 BP 98/59 06/03/19 07:27 Pulse Ox 92 L 06/03/19 07:27 Intake & Output 06/02/19 06/03/19 06/03/19 18:59 06:59 18:59 Intake Total 800 428.929 Output Total 737 250 Balance 63 178.929 Intake: Intake, IV Titration 428.929 Amount Heparin Sod,Pork in 0.45% 158.929 NaCl 25,000 unit In 0.45 % NaCl 1 250ml.bag @ 12 UNITS/KG/HR 8.088 mls/hr IV .Q24H JANICE Rx#: [id number] Sodium Chloride 0.9% 1, 270 000 ml In Empty Bag 1 bag @ 1 ML/KG/HR 67.4 mls/hr IV .[id number] ONE Rx#: [id number] Oral 600 Other 200 Output: Urine 600 250 Post Void Residual 137 Other: Voiding Method Toilet Toilet - Exam GENERAL: The patient is alert and oriented x3, not in any acute distress. Well developed, well nourished. HEENT: Pupils are round and equally reacting to light. EOMI. No scleral icterus. No conjunctival pallor. Normocephalic, atraumatic. No pharyngeal erythema. No thyromegaly. CARDIOVASCULAR: S1 and S2 present. No murmurs, rubs, or gallops. -PULMONARY: Chest is clear to auscultation, no wheezing or crackles. Barrel chest, some limitation in air entry ABDOMEN: Soft, nontender, nondistended, normoactive bowel sounds. No palpable organomegaly. MUSCULOSKELETAL: No joint swelling or deformity. EXTREMITIES: No cyanosis, clubbing, or pedal edema. NEUROLOGICAL: Gross neurological examination did not reveal any focal deficits. SKIN: No rashes. No petechiae - Labs CBC & Chem 7: 06/02/19 06:39 06/01/19 20:50 Labs: Abnormal Lab Results - Last 24 Hours (Table) 06/03/19 06/03/19 Range/Units 06:31 07:02 APTT 38.6 H (22.0-30.0) sec POC Glucose (mg/dL) 130 H (75-99) mg/dL Assessment and Plan Assessment: Chest pain, suspicious for nonischemic COPD , with acute exacerbation hyperlipidemia hypertension history of coronary artery disease, status post CABG Gastroesophageal reflux disease Plan: This is a pleasant 63 years old male who presents because of chest pain. going for coronary angiogram by cardiology team. Continue with steroids, particularly turgor and oxygen as needed. Recommendation by cardiology and pulmonary services. Continue with Flomax, check bladder scan Labs and medication were reviewed.. Continue same treatment. Continue with symptomatic treatment. Resume home medication. Monitor lytes and vitals. DVT and GI prophylaxis. Further recommendations of the clinical course of the patient DVT prophylaxis: heparin GI Prophylaxis: Ppi Prognosis is guarded
--- NOTE | 2019-06-03 08:13 | P.PN ---
Subjective Progress Note Date: 06/03/19 On 06/03/2019 patient seen in follow-up in the observation unit, this morning he had some chest discomfort but patient attributes it to his reflux. He had been on Protonix 40 mg twice daily and outpatient basis, which he is also receiving while inpatient, occasional cough, no significant phlegm production, he remains on 2 L of oxygen with a pulse ox of 92-97%, no worsening dyspnea, his been afebrile, his echocardiogram showed mildly impaired EF of 45-50%, hypokinesis of the basal, anteroseptal and basal septal wall. Mild mitral regurg, mild tricuspid regurg, and right-sided pressures of less than 35 mmHg. Lung sounds are diminished to auscultation, patient remains on breathing treatments, and IV Solu-Medrol. No new labs today, patient is currently receiving IV hydration with 0.9 normal saline at a rate of 70 ML per hour, and heparin per weight-based protocol. Objective - Vital Signs Vital signs: Vital Signs Temp 97.6 F 06/03/19 07:27 Pulse 76 06/03/19 07:27 Resp 18 06/03/19 07:27 BP 98/59 06/03/19 07:27 Pulse Ox 92 L 06/03/19 07:27 Intake & Output 06/02/19 06/03/19 06/03/19 18:59 06:59 18:59 Intake Total 800 428.929 Output Total 737 250 Balance 63 178.929 Weight 66 kg Intake: Intake, IV Titration 428.929 Amount Heparin Sod,Pork in 0.45% 158.929 NaCl 25,000 unit In 0.45 % NaCl 1 250ml.bag @ 12 UNITS/KG/HR 8.088 mls/hr IV .Q24H [facility] Rx#: [id number] Sodium Chloride 0.9% 1, 270 000 ml In Empty Bag 1 bag @ 1 ML/KG/HR 67.4 mls/hr IV .[id number] ONE Rx#: [id number] Oral 600 Other 200 Output: Urine 600 250 Post Void Residual 137 Other: Voiding Method Toilet Toilet - Exam GENERAL EXAM: Alert, very pleasant, 63-year-old white male, on 2 L of oxygen with a pulse ox of 92-97% comfortable in no apparent distress. HEAD: Normocephalic/atraumatic. EYES: Normal reaction of pupils, equal size. Conjunctiva pink, sclera white. NOSE: Clear with pink turbinates. THROAT: No erythema or exudates. NECK: No masses, no JVD, no thyroid enlargement, no adenopathy. CHEST: No chest wall deformity. Symmetrical expansion. LUNGS: Very diminished air entry with no crackles, wheeze, rhonchi or dullness. CVS: Regular rate and rhythm, normal S1 and S2, no gallops, no murmurs, no rubs ABDOMEN: Soft, nontender. No hepatosplenomegaly, normal bowel sounds, no guarding or rigidity. EXTREMITIES: No clubbing, no edema, no cyanosis, 2+ pulses and upper and lower extremities. MUSCULOSKELETAL: Muscle strength and tone normal. SPINE: No scoliosis or deformity SKIN: No rashes CENTRAL NERVOUS SYSTEM: Alert and oriented -3. No focal deficits, tone is normal in all 4 extremities. PSYCHIATRIC: Alert and oriented -3. Appropriate affect. Intact judgment and insight. - Labs CBC & Chem 7: 06/02/19 06:39 06/01/19 20:50 Labs: Abnormal Lab Results - Last 24 Hours (Table) 06/03/19 06/03/19 Range/Units 06:31 07:02 APTT 38.6 H (22.0-30.0) sec POC Glucose (mg/dL) 130 H (75-99) mg/dL Assessment and Plan Plan: 1 Chest tightness with shortness of breath possible angina equivalent 2 Troponin leak 3 Coronary artery disease with previous coronary artery bypass grafting in 2001 at [facility], subsequent cardiac catheterization 2013 at [place] with no further intervention at that time 4 Severe chronic obstructive pulmonary disease with an FEV1 value of 14% of predicted, recently started on prednisone. Not oxygen dependent. 5 Acute hypoxemic respiratory failure secondary to above 6 History of chronic tobacco dependence 7 History of a right upper lobe nodule being followed in the outpatient setting. This has been stable since at least 2013. 8 Hypertension 9 Hyperlipidemia 10 Gastroesophageal reflux disease with recent increasing Protonix to twice a day Plan: From pulmonary perspective patient is stable, will continue current treatment for now, with IV Solu-Medrol and nebulized bronchodilators, and is awaiting his cardiac catheterization sometime this afternoon, echocardiogram results have been noted, patient has mildly impaired EF of 45-50%, mild MR, mild TR, no evidence of pulmonary hypertension. Vital signs stable overnight, we'll await further recommendations from cardiology, from pulmonary perspective patient can be cleared for discharge home as he is cleared by cardiology. He can complete outpatient course of prednisone taper, he can resume his Advair, Spiriva, he has a rescue inhaler, and albuterol nebulized treatments as needed follow-up with Dr. Alicia in the office in 7-10 days I performed a history & physical examination of the patient and discussed their management with my nurse practitioner, Shilpi Zhang. I reviewed the nurse practitioner's note and agree with the documented findings and plan of care. Lung sounds are positive for diminished breath sounds. The findings and the impression was discussed with the patient. I attest to the documentation by the nurse practitioner. Time with Patient: Less than 30
[2019-06-03] MEDS: IPRATROPIUM 0.5 MG/2.5 ML NEBU INHALATION SCH ×4 (08:17→19:55)
[2019-06-03] MEDS: SYMBICORT 160-4.5 MCG INHALER INHALATION SCH ×2 (08:17→19:55)
[2019-06-03] MEDS: METOPROLOL SUCCINATE (ER) 25 MG TAB.ER.24H PO SCH (11:00)
[2019-06-03 11:35] LABS: Glucose,Whole Blood 146 mg/dL (75-99)
[2019-06-03] MEDS ORDERED: VERAPAMIL 2.5 MG/ML 2 ML AMP ONE (13:30)
[2019-06-03] MEDS ORDERED: LIDOCAINE 1% INJ 10MG/ML (20 ML MDV) ONE (13:30)
[2019-06-03] MEDS ORDERED: HEPARIN SODIUM 1,000 UN/ML (10ML VL) ONE (13:30)
[2019-06-03] MEDS ORDERED: fentaNYL (PF) 50 MCG/ML 2 ML AMP ONE (13:30)
[2019-06-03] MEDS ORDERED: fentaNYL (PF) 50 MCG/ML 2 ML AMP IV ONE (13:33)
[2019-06-03] MEDS ORDERED: IV FLUID CONTINUATION 800 ML IV ONE (13:34)
[2019-06-03] MEDS ORDERED: LIDOCAINE 1% INJ 10MG/ML (20 ML MDV) SQ ONE ×2 (13:35→13:49)
[2019-06-03] MEDS ORDERED: VERAPAMIL SYRINGE (5 MG/10 ML) INTRAARTER ONE (13:37)
[2019-06-03] MEDS ORDERED: IOPAMIDOL-370 125ML BTL INJ ONE (13:59)
[2019-06-03] MEDS ORDERED: RX INFO: IV CONTRAST WAS GIVEN 1 EACH MISC MISCELLANE PRN (14:10)
[2019-06-03] MEDS ORDERED: SODIUM CHLORIDE 0.9% 1,000 ML IV SCH (14:15)
[2019-06-03] MEDS: POTASSIUM CHLORIDE ER 20 MEQ TAB.ER PO SCH (14:48)
[2019-06-03 16:24] LABS: Glucose,Whole Blood 124 mg/dL (75-99)
--- NOTE | 2019-06-03 17:04 | CC ---
CARDIAC CATHETERIZATION REPORT Mr. Neville is a 63-year-old male with known history of severe chronic obstructive lung disease, history of coronary artery disease, status post coronary artery bypass grafting in 2001 with repeat cardiac catheterization in 2014 that revealed occluded saphenous vein graft with patent LAD and occluded [place] left circumflex and right coronary artery. He presented with symptoms of progressive dyspnea and chest discomfort with mild troponin elevation. In view of that, he was evaluated by Dr. Queen and recommendation was made regarding cardiac catheterization. The procedure, its risks and complications were discussed with the patient, who was in full understanding and agreement. PROCEDURE DESCRIPTION: Patient was brought to the roving tester laboratory in a fasting semi-sedated state after receiving fentanyl and Benadryl and achieving moderate conscious sedated state. After cannulating the right coronary artery there was inability to achieve the wire because of severe vasospastic disease. At that point, the wire was removed, and using Xylocaine anesthesia and Seldinger technique, a 6-Hungarian sheath was introduced in the right femoral artery. Selective right and left coronary angiography was performed using 6-Hungarian 4 bend right and left Hoda catheters. Multiple views were taken of the arteries, including hemiaxial views. Following that, the right Hoda catheter was used to cross the aortic valve and the left ventricular end-diastolic pressure was calculated. The right Hoda catheter was used to cannulate the saphenous vein graft. At the end of the procedure, catheters and sheaths were removed. Hemostasis was obtained with compression of the right groin. There was no immediate complication. Patient was returned to his room in stable condition. FINDINGS: 1. LEFT MAIN: This is a large-size vessel bifurcating into left circumflex, left anterior descending artery. Left main coronary artery has no evidence of high-grade stenosis. 2. LEFT ANTERIOR DESCENDING ARTERY: This is a large-sized vessel reaching toward the apex with a wrap around the apex segment giving rise to two diagonal branches. The second one is large in caliber. The left anterior descending artery has mild intimal disease of 10% to 20%. The diagonal branch has a 30% to 40% plaque. The rest of the vessel has no high-grade stenosis. 3. LEFT CIRCUMFLEX: This is a nondominant vessel giving rise to three obtuse marginal branches. After the takeoff of the first obtuse marginal branch, the vessel is totally occluded with late filling through collaterals of the second and third obtuse marginal branches. 4. RIGHT CORONARY ARTERY: This vessel is totally occluded in the mid segment after the takeoff of an acute marginal branch with no significant antegrade flow. 5. COLLATERALS: There is collateral from the left coronary system toward the right PDA. 6. SAPHENOUS VEIN GRAFT TO THE OM2: This graft is totally occluded. 7. SAPHENOUS VEIN GRAFT TO THE OM3: This graft is totally occluded. 8. SAPHENOUS VEIN GRAFT TO THE RCA: This graft is totally occluded proximally. 9. LEFT VENTRICULOGRAM: Left ventriculogram was not performed. 10.HEMODYNAMICS: There was no gradient across the aortic valve. The left ventricular end-diastolic pressure was 8 to 10 mmHg. CONCLUSION: 1. Chronically occluded left circumflex and right coronary artery with ipsilateral and contralateral collaterals. 2. Mild disease in the left anterior descending coronary artery. 3. Chronically occluded saphenous vein grafts. RECOMMENDATIONS: In view of findings and anatomy, I have recommended continued medical therapy. There does not appear to be any significant progression of disease in comparison to the report of 2014. Those findings and recommendation were discussed with the patient and his family, and they are in full understanding and agreement. Duration of the procedure was 30 minutes. MMODL / IJN: [id number] /
[2019-06-03] MEDS: TAMSULOSIN 0.4 MG CAP.ER.24H PO SCH (18:11)
[2019-06-03 19:50] LABS: Glucose,Whole Blood 160 mg/dL (75-99)
[2019-06-03] MEDS: FUROSEMIDE 40 MG TAB PO SCH (20:10)
[2019-06-03] MEDS: ISOSORBIDE MONONITRATE ER 60 MG TAB.ER.24H PO SCH (20:11)
[2019-06-03] MEDS: CLOPIDOGREL 75 MG TAB PO SCH (20:14)
[2019-06-03] MEDS: CALCIUM CARBONATE 500 MG CHEWABLE PO PRN (22:09)
[2019-06-04] MEDS ORDERED: CALCIUM CARBONATE 500 MG CHEWABLE PO ONE (04:40)
[2019-06-04] MEDS: methylPREDNISolone SOD SUCCI 125 MG/2 ML VIAL IV SCH ×2 (05:59→12:57)
[2019-06-04] MEDS: PANTOPRAZOLE 40 MG TABLET PO SCH (06:47)
[2019-06-04 07:00] LABS: Glucose,Whole Blood 119 mg/dL (75-99)
[2019-06-04] MEDS: SYMBICORT 160-4.5 MCG INHALER INHALATION SCH (07:23)
[2019-06-04] MEDS: IPRATROPIUM 0.5 MG/2.5 ML NEBU INHALATION SCH ×2 (07:23→11:37)
[2019-06-04 07:30] LABS: African American GFR (CKD) >90 (>60 ml/min/1.73 sqM); Anion Gap 5 mmol/L; Blood Urea Nitrogen 28 mg/dL (9-20); Calcium 8.9 mg/dL (8.4-10.2); Carbon Dioxide 30 mmol/L (22-30); Chloride 97 mmol/L (98-107); Glucose 119 mg/dL (74-99); Non-African American GFR(CKD) >90 (>60 ml/min/1.73 sqM); Potassium 4.3 mmol/L (3.5-5.1); Sodium 132 mmol/L (137-145)
[2019-06-04 07:31] VITALS: RESP 19
[2019-06-04] MEDS: INSULIN ASPART (NovoLOG) 100 UNIT/ML VIAL SQ SCH ×2 (07:49→12:53)
[2019-06-04] MEDS: ATORVASTATIN 40 MG TAB PO SCH (07:55)
[2019-06-04] MEDS: METOPROLOL SUCCINATE (ER) 25 MG TAB.ER.24H PO SCH (07:56)
--- NOTE | 2019-06-04 08:34 | P.DS ---
Providers Date of admission: 06/03/19 09:13 Attending physician: Annmarie Hugo Consults: 06/01/19 21:39 Consult Physician Routine Consulting Provider: Juan Resendiz Consult Reason/Comments: cp Do you want consulting provider notified?: Yes Primary care physician: Hossein Ecketr Hospital Course: Diagnoses: Unstable angina/non-STEMI. Chest pain improved, status post coronary angiogram: Chronic disease and cardiology recommended medical therapy COPD , with acute exacerbation hyperlipidemia hypertension history of coronary artery disease, status post CABG Gastroesophageal reflux disease Hospital course: This is a pleasant 63 years old male with past medical history of coronary artery disease, status post CABG, COPD, GERD, hyperlipidemia, hypertension. Presents with chest pressure and dyspnea of one-day duration rather than chest pain, no associated nausea vomiting . He has some loose stool and urine difficulty, patient was admitted to the hospital and diagnosed with COPD exacerbation and Unstable angina/non-STEMI. Patient underwent cardiac cath on 06/03, showing a chronically occluded left circumflex and right coronary arteries, with mild disease in the LAD and chronically occluded saphenous vein grafts. Patient just look chronic and anodize machine operator recommended to continue with medical therapy. Also oreman evaluated the patient and recommended to continue with steroid taper upon discharge Patient felt much better and back close to his baseline, patient was to be discharged home today. Patient still complaining of from acid reflux, he states that he had a scope done for him to years ago which was unremarkable, patient was advised this could be due to steroid effect and instructed him to follow-up with his PCP and hoist operator as outpatient with brice Rowland and he agrees Also he has some urine difficulties which improved with Flomax, he should also referred for urologist as an outpatient with Dr. Tubbs and he agrees His other symptoms of diarrhea, nausea vomiting has stopped, he did not have bowel movement since yesterday. No other complaints. No chest pain Patient is not on home oxygen however he is takes prednisone 5 mg daily, begun to taper the steroids down to 5 mg daily and patient verbalized understanding Patient was cleared for discharge by pulmonary and cardiology services Problems and management plan were discussed with the patient and he verbalized understanding and acceptance Patient was found stable and can be discharged home however he needs follow-up as an outpatient. Patient was instructed to follow up with PCP within one week and patient agrees. Patient has appointment with his anodize machine operator on 06/1217 test to follow-up with (onset anodize machine operator and he has contact information) , he sees Dr. Alicia,and was instructed to follow up with him in 1 week. And with urologist Dr. Tubbs in 1-2 weeks and he agrees. Gen: patient is a AAOx3, no distress CVS: S1-S2, RRR, no murmur Lungs: B/L CTA, no wheezing Abdomen: soft, no distention, no tenderness, positive bowel sounds Extremity: no leg edema or induration Time spent more than 35 minutes Patient Condition at Discharge: Fair Plan - Discharge Summary Discharge Rx Participant: No New Discharge Prescriptions: New Tamsulosin [Flomax] 0.4 mg PO PC-SUPPER #30 cap.er.24h Atorvastatin [Lipitor] 40 mg PO DAILY #30 tab predniSONE 10 mg PO DIRECTED #30 tab Continue Nitroglycerin Sl Tabs [Nitrostat] 0.4 mg SUBLINGUAL Q5M PRN PRN Reason: Chest Pain Albuterol Nebulized [Ventolin Nebulized] 2.5 mg INHALATION RT-QID PRN PRN Reason: Shortness Of Breath Simethicone [Gas-X] 125 - 250 mg PO QID PRN PRN Reason: Indigestion Calcium Carbonate [Tums] 1,000 mg PO TID PRN PRN Reason: Heartburn predniSONE 5 mg PO DAILY@0730 Tiotropium [place] [Spiriva] 1 cap INHALATION RT-HS@2130 Metoprolol Succinate [Toprol XL] 25 mg PO DAILY@0800 Clopidogrel Bisulfate [Plavix] 75 mg PO HS@2200 Isosorbide Mononitrate ER [Imdur] 30 mg PO HS@2200 Fluticasone/Salmeterol [Advair Hfa 230-21 Mcg Inhaler] 2 puff INHALATION RT- BID@0800,2200 Albuterol Sulfate [Ventolin HFA] 2 puff INHALATION RT-Q4H PRN PRN Reason: Shortness Of Breath Potassium Chloride ER [K-Dur 20] 20 meq PO DAILY@1500 Pantoprazole Sodium [Protonix] 40 mg PO BID@0700,1500 Furosemide [Lasix] 40 mg PO DAILY@1500 Discharge Medication List Albuterol Nebulized [Ventolin Nebulized] 2.5 mg INHALATION RT-QID PRN 06/01/19 [History] Albuterol Sulfate [Ventolin HFA] 2 puff INHALATION RT-Q4H PRN 06/01/19 [History] Calcium Carbonate [Tums] 1,000 mg PO TID PRN 06/01/19 [History] Clopidogrel Bisulfate [Plavix] 75 mg PO HS@219906/01/19 [History] Fluticasone/Salmeterol [Advair Hfa 230-21 Mcg Inhaler] 2 puff INHALATION RT- BID@0800,0 06/01/19 [History] Furosemide [Lasix] 40 mg PO DAILY@149906/01/19 [History] Isosorbide Mononitrate ER [Imdur] 30 mg PO HS@219906/01/19 [History] Metoprolol Succinate [Toprol XL] 25 mg PO DAILY@0800 06/01/19 [History] Nitroglycerin Sl Tabs [Nitrostat] 0.4 mg SUBLINGUAL Q5M PRN 06/01/19 [History] Pantoprazole Sodium [Protonix] 40 mg PO BID@0700,1500 06/01/19 [History] Potassium Chloride ER [K-Dur 20] 20 meq PO DAILY@1500 06/01/19 [History] Simethicone [Gas-X] 125 - 250 mg PO QID PRN 06/01/19 [History] Tiotropium [place] [Spiriva] 1 cap INHALATION RT-HS@212906/01/19 [History] predniSONE 5 mg PO DAILY@0730 06/01/19 [History] Atorvastatin [Lipitor] 40 mg PO DAILY #30 tab 06/04/19 [Rx] Tamsulosin [Flomax] 0.4 mg PO PC-SUPPER #30 cap.er.24h 06/04/19 [Rx] predniSONE 10 mg PO DIRECTED #30 tab 06/04/19 [Rx] Follow up Appointment(s)/Referral(s): Rojas Alicia DO [Doctor of Osteopathic Medicine] - 1 Week Andrea Garg MD [STAFF PHYSICIAN] - 2 Weeks (Urologist for your urine difficulties) Hossein Eckert MD [Primary Care Provider] - 1-2 days Activity/Diet/Wound Care/Special Instructions: Had healthy and diabetic 18 kcal per day Activity is limited till you see your doctor Discharge Disposition: HOME SELF-CARE
[2019-06-04] MEDS ORDERED: ASPIRIN 81 MG PO SCH (09:00)
--- NOTE | 2019-06-04 10:31 | P.PN ---
Subjective HISTORY OF PRESENTING ILLNESS This is a pleasant 63-year-old male past medical history significant for coronary artery disease status post bypass grafting, myocardial infarction, COPD, hypertension, dyslipidemia and former nicotine dependence. He follows in the office with scientologist out of [place]. He underwent cardiac catheterizat ion yesterday with Dr. Resendiz. Chronically occluded left circumflex and RCA with ipsilateral and contralateral collaterals, mild disease in the LAD and chronically occluded saphenous vein grafts. According to his previous catheterization from 2013 which was reviewed in detail by Dr. Dr. Resendiz there is no change in the patient's coronary artery disease. Blood pressure 123/67 heart rate 67 afebrile maintaining oxygen saturation on nasal cannula. Laboratory data reviewed, sodium 132, potassium 4.3, creatinine 0.88. Currently maintained on aspirin 81 mg daily, simvastatin 40 mg daily, Lasix 40 mg daily, Plavix 75 mg daily, Imdur 60 mg daily and Toprol 25 mg daily. PHYSICAL EXAMINATION CONSTITUTIONAL: No apparent distress. Barrel chest appearance. HEENT: Head is normocephalic. Pupils are equal, round. Sclerae anicteric. Mucous membranes of the mouth are moist. No JVD. No carotid bruit. CHEST EXAMINATION: Lungs are clear to auscultation. No chest wall tenderness is noted on palpation or with deep breathing. Diminished bilaterally. HEART EXAMINATION: Regular rate and rhythm. S1, S2 heard. No murmurs, gallops or rub. EXTREMITIES: 2+ peripheral pulses, no lower extremity edema and no calf tenderness. Right radial access site is clean and intact without evidence of hematoma and strong distal pulses. There is mild ecchymosis noted. Right femoral access site is clean, dry and intact with no evidence of hematoma, ecchymosis or swelling. Strong distal pulses. ASSESSMENT Unstable angina Non-ST elevated myocardial infarction History of coronary artery disease status post bypass grafting Hypertension Dyslipidemia, patient stopped taking his statin approximately 4 months ago secondary to stomach irritation COPD Former nicotine dependence PLAN Stable for discharge on increased dose of Imdur. Follow up with Dr. Vick upon discharge. He already has an appointment sched ed in the office 06/18/2019. Nurse Practitioner note has been reviewed, I agree with a documented findings and plan of care. Patient was seen and examined. Objective - Vital Signs Vital signs: Vital Signs Temp 97.6 F 06/04/19 07:29 Pulse 76 06/04/19 07:34 Resp 19 06/04/19 07:29 BP 123/67 06/04/19 07:29 Pulse Ox 97 06/04/19 07:29 Intake & Output 06/03/19 06/04/19 06/04/19 18:59 06:59 18:59 Intake Total 390 960 Output Total 525 Balance 390 435 Weight 66 kg 67.5 kg Intake: IV 150 Oral 240 960 Output: Urine 525 Other: Voiding Method Toilet Toilet Toilet # Voids 2 1 - Labs CBC & Chem 7: 06/02/19 06:39 06/04/19 06:48 Labs: Abnormal Lab Results - Last 24 Hours (Table) 06/03/19 06/03/19 06/03/19 Range/Units 11:33 16:23 19:48 Sodium (137-145) mmol/L Chloride (98-107) mmol/L BUN (9-20) mg/dL Glucose (74-99) mg/dL POC Glucose (mg/dL) 146 H 124 H 160 H (75-99) mg/dL 06/04/19 06/04/19 Range/Units 06:48 06:59 Sodium 132 L (137-145) mmol/L Chloride 97 L (98-107) mmol/L BUN 28 H (9-20) mg/dL Glucose 119 H (74-99) mg/dL POC Glucose (mg/dL) 119 H (75-99) mg/dL
[2019-06-04 11:27] VITALS: BP 135/79; TEMP 98.1
[2019-06-04 11:47] VITALS: PULSE 76
[2019-06-04 11:50] LABS: Glucose,Whole Blood 120 mg/dL (75-99)
== END 2019-06-04 13:47 | disposition home or self-care (01) | DRG 280 ==
LOC: EC 20:37 → 1SOBS 21:39 → OBSVTOIN 06-03 09:13
PROVIDERS: ADMIT Hospitalist; ATTEND Hospitalist
PROC: 4A023N7 Measurement of Cardiac Sampling and Pressure, Left Heart, Percutaneous Approach (ICD-10-PCS; principal; 2019-06-03 15:00)
PROC: B2111ZZ Fluoroscopy of Multiple Coronary Arteries using Low Osmolar Contrast (ICD-10-PCS; principal; 2019-06-03 15:00)
PROC: B2131ZZ Fluoroscopy of Multiple Coronary Artery Bypass Grafts using Low Osmolar Contrast (ICD-10-PCS; principal; 2019-06-03 15:00)
DX: I21.4 Non-ST elevation (NSTEMI) myocardial infarction (principal); J96.01 Acute respiratory failure with hypoxia; I25.810 Atherosclerosis of coronary artery bypass graft(s) without angina pectoris; J44.1 Chronic obstructive pulmonary disease with (acute) exacerbation; J45.901 Unspecified asthma with (acute) exacerbation; I25.10 Atherosclerotic heart disease of native coronary artery without angina pectoris; Z95.1 Presence of aortocoronary bypass graft; Z87.891 Personal history of nicotine dependence; H54.61 Unqualified visual loss, right eye, normal vision left eye; I08.1 Rheumatic disorders of both mitral and tricuspid valves; I10 Essential (primary) hypertension; I25.2 Old myocardial infarction; E78.5 Hyperlipidemia, unspecified; K21.9 Gastro-esophageal reflux disease without esophagitis; Z79.02 Long term (current) use of antithrombotics/antiplatelets; Z79.51 Long term (current) use of inhaled steroids; Z79.82 Long term (current) use of aspirin; Z79.899 Other long term (current) drug therapy; Z82.5 Family history of asthma and other chronic lower respiratory diseases; Z83.3 Family history of diabetes mellitus; Z88.0 Allergy status to penicillin; Z88.8 Allergy status to other drugs, medicaments and biological substances; Z91.018 Allergy to other foods
CPT/HCPCS: 71045; 80048; 80053; 80061; 83735; 83880; 84484; 85025; 85610; 85730; 93005; 93306; 93459; 94640; 96374; 99285